=== PATIENT | male | born 1980 | race Caucasian/White ===

== ENCOUNTER 2022-11-06 21:25 | Emergency (ER) | payer SELFPAY ==
[2022-11-06 21:40] VITALS: BP 112/68; PULSE 84; RESP 18; BMI 50.1
[2022-11-06 22:24] LABS: BASO % 0.4 % (0-2.0); EOS % 1.3 % (0-4.5); HEMATOCRIT 38.3 % (35.4-49); HEMOGLOBIN 12.7 GM/dL (11.7-16.9); LYMPH % 28.5 % (8-40); MCH 29.4 pg (25.7-33.7); MCHC 33.2 g/dl (32.0-35.9); MEAN CELL VOLUME 88.7 fl (80-96); MEAN PLT VOLUME 7.8 fl (7.5-11.1); MONO % 8.2 % (3.8-10.2); NEUT % 61.6 % (42.8-82.8); PLATELET COUNT 232 10^3/uL (134-434); RBC 4.32 M/mm3 (4.00-5.60); RDW 13.7 % (11.9-15.9); WHITE BLOOD COUNT 9.4 K/mm3 (4.0-10.0)
[2022-11-06 22:46] LABS: CALCIUM 8.6 mg/dL (8.5-10.1)
[2022-11-06 22:47] LABS: ALBUMIN 3.4 g/dl (3.4-5.0)
[2022-11-06 22:50] LABS: CREATININE 0.7 mg/dL (0.55-1.3)
[2022-11-06 22:51] LABS: BILIRUBIN,TOTAL 0.3 mg/dL (0.2-1)
[2022-11-06 22:52] LABS: TOT PROT 6.6 g/dl (6.4-8.2)
== END 2022-11-07 02:00 | disposition home or self-care (01) ==
LOC: JER 21:25
DX: R07.9 Chest pain, unspecified (principal)
CPT/HCPCS: 0241U-QW; 36415; 71046-TC-FY; 80053; 82550; 82553; 84484; 85025; 93005; 93010; 99285-25